=== PATIENT | female | born 1990 | race Two or more races ===

== ENCOUNTER 2021-07-05 09:28 | Emergency (ER) | payer OTHER ==
[2021-07-05 09:38] VITALS: TEMP 97.9; BMI 29.1
[2021-07-05 11:03] LABS: BASO % 0.8 % (0-2.0); EOS % 1.9 % (0-4.5); HEMATOCRIT 26.3 % (32.4-45.2); HEMOGLOBIN 7.9 GM/dL (10.7-15.3); LYMPH % 26.8 % (8-40); MCHC 30.2 g/dl (32.0-36.0); MEAN CELL VOLUME 65.8 fl (80-96); MEAN PLT VOLUME 8.9 fl (7.5-11.1); MONO % 6.4 % (3.8-10.2); NEUT % 64.1 % (42.8-82.8); PLATELET COUNT 378 10^3/uL (134-434); RBC 3.99 M/mm3 (3.60-5.2); RDW 17.6 % (11.6-15.6); WHITE BLOOD COUNT 5.7 K/mm3 (4.0-10.0)
[2021-07-05 11:04] LABS: MCH 19.9 pg (25.7-33.7)
[2021-07-05 11:10] LABS: INR 1.05 (0.83-1.09); PROTHROMBIN TIME (PATIENT) 12.1 SEC (9.7-13.0)
[2021-07-05 11:26] LABS: BLOOD UREA NITROGEN 9.6 mg/dL (7-18)
[2021-07-05 11:27] LABS: ALBUMIN 4.2 g/dl (3.4-5.0); CALCIUM 9.1 mg/dL (8.5-10.1)
[2021-07-05 11:31] LABS: CREATININE 0.7 mg/dL (0.55-1.3)
[2021-07-05 11:32] LABS: BILIRUBIN,TOTAL 0.2 mg/dL (0.2-1)
[2021-07-05 12:09] VITALS: BP 108/68; PULSE 64
== END 2021-07-05 12:05 | disposition home or self-care (01) ==
LOC: JER 09:28
DX: N92.0 Excessive and frequent menstruation with regular cycle (principal); D50.0 Iron deficiency anemia secondary to blood loss (chronic)
CPT/HCPCS: 36415; 80053; 84703; 85025; 85610; 86850; 86900; 86901; 99284-25

== ENCOUNTER 2021-10-09 04:32 | Inpatient (IN) | payer OTHER ==
[2021-10-02 13:42] VITALS: BMI 29.2
[2021-10-09] MEDS ORDERED: KETOROLAC TROMETHAMINE 30 MG/1 ML VIAL IVPUSH SCH ×2 (07:00→23:00)
[2021-10-09] MEDS ORDERED: CEFAZOLIN 2 GM in DEXTROSE 5%-WATER - 100 ML IVPB ONE (09:00)
[2021-10-09] MEDS ORDERED: BUPIVACAINE HCL/PF 0.5% (5MG/ML) 10 ML VIAL ONE (10:00)
[2021-10-09] MEDS ORDERED: BUPIVACAINE LIPOSOME/PF (EXPAREL) 266 MG/20 ML VIAL ONE (10:00)
[2021-10-09] MEDS ORDERED: MIDAZOLAM HCL 2 MG/2 ML SINGLE DOSE VIAL ONE ×2 (10:01)
[2021-10-09] MEDS ORDERED: HYDROmorphone HCl 2 MG/ML VIAL ONE (10:43)
[2021-10-09] MEDS ORDERED: ROCURONIUM BROMIDE 50 MG/5 ML SYRINGE ONE (10:43)
[2021-10-09] MEDS ORDERED: PROPOFOL 20 ML ONE ×2 (10:43→12:05)
[2021-10-09] MEDS ORDERED: FENTANYL CITRATE/PF 50 MCG/ML VIAL ONE ×3 (10:43→13:10)
[2021-10-09] MEDS ORDERED: LIDOCAINE HCL/PF 2% SDV 5ML VIAL ONE (10:48)
[2021-10-09] MEDS ORDERED: ceFAZolin SODIUM 1 GM VIAL IVPB ONE (11:08)
[2021-10-09] MEDS ORDERED: ONDANSETRON 4 MG/2 ML VIAL IVPUSH PRN ×2 (11:50→12:43)
[2021-10-09] MEDS ORDERED: DEXAMETHASONE SOD PHOSPHATE 4 MG/1 ML VIAL ONE (11:56)
[2021-10-09] MEDS ORDERED: GLYCOPYRROLATE 0.2 MG/1 ML VIAL ONE (11:57)
[2021-10-09] MEDS ORDERED: NEOSTIGMINE METHYLSULFATE 0.5 MG/ML - 10 ML MDV ONE (11:57)
[2021-10-09] MEDS ORDERED: KETOROLAC TROMETHAMINE 30 MG/1 ML VIAL ONE (11:57)
[2021-10-09] MEDS ORDERED: BISACODYL 5 MG TABLET.DR (FP) PO PRN (12:43)
[2021-10-09] MEDS ORDERED: SIMETHICONE 80 MG TAB.CHEW (FP) PO PRN (12:43)
[2021-10-09] MEDS ORDERED: DOCUSATE SODIUM 100 MG CAPSULE (FP) PO PRN (12:43)
[2021-10-09] MEDS ORDERED: oxyCODONE HCL 5 MG TABLET PO PRN ×2 (12:43)
[2021-10-09] MEDS: FENTANYL CITRATE/PF 50 MCG/ML VIAL IVPUSH PRN ×2 (13:05→13:10)
[2021-10-09] MEDS: SODIUM CHLORIDE 1,000 ML IV SCH (14:05)
[2021-10-09] MEDS ORDERED: ceFAZolin SODIUM 1 GM VIAL ONE (18:00)
[2021-10-09] MEDS ORDERED: DEXTROSE 5%-WATER - 50 ML IVPB ONE (18:00)
[2021-10-09] MEDS: CEFAZOLIN 1 GM in DEXTROSE 5%-WATER - 50 ML IVPB SCH (18:04)
[2021-10-09 19:45] LABS: HEMOGLOBIN 8.6 GM/dL (10.7-15.3); MCH 21.8 pg (25.7-33.7); MCHC 30.8 g/dl (32.0-36.0); MEAN CELL VOLUME 70.6 fl (80-96); MEAN PLT VOLUME 8.5 fl (7.5-11.1); PLATELET COUNT 249 10^3/uL (134-434); RBC 3.96 M/mm3 (3.60-5.2); RDW 18.8 % (11.6-15.6); WHITE BLOOD COUNT 7.2 K/mm3 (4.0-10.0)
[2021-10-09 20:11] LABS: CALCIUM 8.2 mg/dL (8.5-10.1)
[2021-10-09 20:15] LABS: CREATININE 0.7 mg/dL (0.55-1.3)
[2021-10-09] MEDS ORDERED: ACETAMINOPHEN 500 MG TABLET (FP) PO SCH (21:00)
[2021-10-09] MEDS: FAMOTIDINE 20 MG TABLET PO PRN (21:23)
[2021-10-09] MEDS: LACTATED RINGERS SOLUTION 1,000 ML IV SCH (22:50)
[2021-10-10] MEDS ORDERED: DEXTROSE 5%-WATER - 50 ML IVPB ONE ×2 (01:53→09:10)
[2021-10-10] MEDS ORDERED: ceFAZolin SODIUM 1 GM VIAL ONE ×2 (01:53→09:11)
[2021-10-10] MEDS: CEFAZOLIN 1 GM in DEXTROSE 5%-WATER - 50 ML IVPB SCH ×2 (01:57→09:17)
[2021-10-10] MEDS: KETOROLAC TROMETHAMINE 30 MG/1 ML VIAL IVPUSH SCH ×2 (06:20→15:59)
[2021-10-10 08:22] LABS: HEMATOCRIT 22.9 % (32.4-45.2); HEMOGLOBIN 7.2 GM/dL (10.7-15.3); MCHC 31.3 g/dl (32.0-36.0); MEAN CELL VOLUME 70.4 fl (80-96); PLATELET COUNT 115 10^3/uL (134-434); RBC 3.25 M/mm3 (3.60-5.2); RDW 18.9 % (11.6-15.6); WHITE BLOOD COUNT 4.8 K/mm3 (4.0-10.0)
[2021-10-10 09:09] LABS: CALCIUM 7.9 mg/dL (8.5-10.1)
[2021-10-10 09:11] LABS: BLOOD UREA NITROGEN 9.4 mg/dL (7-18)
[2021-10-10 09:13] LABS: CREATININE 0.5 mg/dL (0.55-1.3)
[2021-10-10] MEDS: ENOXAPARIN NA (PORCINE) 40 MG/0.4 ML DISP.SYRIN SQ SCH (09:19)
[2021-10-10] MEDS ORDERED: PNEUMOC 20-VAL CONJ-DIP CRM/PF 0.5 ML SYRINGE IM ONE (10:00)
[2021-10-10] MEDS: LACTATED RINGERS SOLUTION 1,000 ML IV SCH (12:12)
[2021-10-10] MEDS: SODIUM CHLORIDE 1,000 ML IV SCH (13:34)
[2021-10-10] MEDS: ACETAMINOPHEN 500 MG TABLET (FP) PO SCH ×3 (13:55→23:35)
[2021-10-10] MEDS: FAMOTIDINE 20 MG TABLET PO PRN (23:38)
[2021-10-11] MEDS: ACETAMINOPHEN 500 MG TABLET (FP) PO SCH ×2 (06:07→12:30)
[2021-10-11 07:23] LABS: BASO % 0.3 % (0-2.0); EOS % 1.5 % (0-4.5); HEMATOCRIT 30.2 % (32.4-45.2); HEMOGLOBIN 9.7 GM/dL (10.7-15.3); LYMPH % 37.9 % (8-40); MCH 23.3 pg (25.7-33.7); MCHC 32.2 g/dl (32.0-36.0); MEAN CELL VOLUME 72.3 fl (80-96); MEAN PLT VOLUME 8.9 fl (7.5-11.1); MONO % 8.8 % (3.8-10.2); NEUT % 51.5 % (42.8-82.8); PLATELET COUNT 195 10^3/uL (134-434); RBC 4.17 M/mm3 (3.60-5.2); RDW 19.4 % (11.6-15.6); WHITE BLOOD COUNT 4.8 K/mm3 (4.0-10.0)
[2021-10-11 09:35] VITALS: BP 98/59; PULSE 57; TEMP 98.2
[2021-10-11] MEDS: ENOXAPARIN NA (PORCINE) 40 MG/0.4 ML DISP.SYRIN SQ SCH (09:57)
[2021-10-11] MEDS: LACTATED RINGERS SOLUTION 1,000 ML IV SCH (12:29)
== END 2021-10-11 12:55 | disposition home or self-care (01) | DRG 519 ==
LOC: J2C 04:32 → J3W 14:26
PROVIDERS: ADMIT Obstetrics & Gynecology; ATTEND Obstetrics & Gynecology
PROC: 0UB90ZZ Excision of Uterus, Open Approach (ICD-10-PCS; principal; 2021-10-09 10:00)
DX: D25.9 Leiomyoma of uterus, unspecified (principal); D64.9 Anemia, unspecified
CPT/HCPCS: 36415; 36430; 80048; 85025; 85027; 86850; 86900; 86901; 86922; 88305-TC; 94010; 94760; P9058